=== PATIENT | female | born 1935 | race Two or more races ===

== ENCOUNTER 2023-09-20 22:06 | Inpatient (IN) | payer MEDICARE, OTHER ==
[~2023-09-20] VITALS: Ht 154.9 cm; Wt 39.0 kg
[2023-09-20] MEDS ORDERED: CYAN-51 PO (22:25)
[2023-09-20] MEDS ORDERED: MULT-1045 PO (22:25)
[2023-09-20] MEDS ORDERED: MELA3TAB47 PO (22:25)
[2023-09-20] MEDS ORDERED: OLAN5TAB70 PO (22:25)
[2023-09-20] MEDS ORDERED: POLY119P17 PO (22:25)
[2023-09-20] MEDS ORDERED: ACET-3117 PO (22:25)
[2023-09-20] MEDS ORDERED: OLAN10TA73 PO (22:25)
[2023-09-20] MEDS ORDERED: CALC-494 PO (22:25)
[2023-09-20] MEDS ORDERED: HALOPERIDOL LACTATE 5 MG/1 ML VIAL ONE (23:05)
[2023-09-20] MEDS: HALOPERIDOL LACTATE 5 MG/1 ML VIAL IM ONE (23:09)
[2023-09-20 23:12] LABS: BASOPHILS % (AUTO) 0.5 % (0.0-2.0); EOSINOPHILS # (AUTO) 0.1 K/uL (0.0-0.7); EOSINOPHILS % (AUTO) 1.7 % (0.0-7.0); HEMATOCRIT 37.8 % (31.2-41.9); HEMOGLOBIN 11.9 g/dL (10.9-14.3); LYMPHOCYTES # (AUTO) 3.2 K/uL (0.8-4.8); LYMPHOCYTES % (AUTO) 40.9 % (20.5-51.5); MEAN CORPUSCULAR HGB CONC 32 g/dL (32.3-35.6); MEAN CORPUSCULAR VOLUME 85.7 fL (75.5-95.3); MONOCYTES # (AUTO) 0.8 K/uL (0.1-1.30); MONOCYTES % (AUTO) 10.3 % (0.0-11.0); NEUTROPHILS # (AUTO) 3.7 K/uL (1.8-8.9); NEUTROPHILS % (AUTO) 46.6 % (38.5-71.5); PLATELET COUNT (AUTO) 295 K/uL (179-408); RED CELL DISTRIBUTION WIDTH 14.7 % (12.3-17.7); WHITE BLOOD COUNT (AUTO) 7.9 K/uL (3.8-11.8)
[2023-09-20 23:20] LABS: CALCIUM 9.6 mg/dL (8.5-10.1); CARBON DIOXIDE 30 mmol/L (21-32); CHLORIDE 100 mmol/L (98-107); CREATININE 0.9 mg/dL (0.6-1.3); GLUCOSE 118 mg/dL (74-106); POTASSIUM 4.4 mmol/L (3.5-5.1); SODIUM SERUM 139 mmol/L (136-145); UREA NITROGEN, BLOOD 36 mg/dL (7-18)
[2023-09-20 23:23] LABS: DIFFERENTIAL COMMENT 1
[2023-09-20 23:26] LABS: ACETAMINOPHEN < 10.0 ug/mL (10-30); ALANINE AMINOTRANSFERASE 33 U/L (14-59); ALBUMIN 3.6 g/dL (3.4-5.0); ALKALINE PHOSPHATASE 151 U/L (50-136); ASPARTATE AMINOTRANSFERASE 25 U/L (15-37); BILIRUBIN,DIRECT 0.1 mg/dL (0.0-0.2); BILIRUBIN,TOTAL 0.3 mg/dL (0.2-1.0); TOTAL PROTEIN, SERUM 8.3 g/dL (6.4-8.2)
[2023-09-20 23:34] LABS: THYROID STIMULATING HORMONE 3.778 mIU/mL (0.358-3.740)
[2023-09-20 23:42] LABS: ETHANOL < 3 MG/DL (0-10)
[2023-09-21 00:04] LABS: *BILIRUBIN,URIN NEGATIVE (NEGATIVE); *BLOOD, URINE 2+ (NEGATIVE); *CLARITY,URINE CLEAR (CLEAR); *COLOR,URINE YELLOW (YELLOW); *KETONES,URINE NEGATIVE (NEGATIVE); *PROTEIN,URINE TRACE (NEGATIVE); *UROBILINOGEN,URINE 0.2 E.U./dl (NORMAL); LEUKOCYTE ESTERASE ,URINE TRACE (NEGATIVE); NITRITE, URINE NEGATIVE (NEGATIVE); PH,URINE 7.5 (5.0-8.0); UGLUCOSE NEGATIVE (NEGATIVE)
[2023-09-21 00:06] LABS: *AMPHETAMINE, URINE NEGATIVE (NEGATIVE); *BARBITURATE, URINE NEGATIVE (NEGATIVE); *BENZODIAZEPINE, URINE NEGATIVE (NEGATIVE); *CANNABINOID, URINE NEGATIVE (NEGATIVE); *COCCAINE, URINE NEGATIVE (NEGATIVE); *OPIATE, URINE NEGATIVE (NEGATIVE); *PHENCYCLIDINE SCREEN,URINE NEGATIVE (NEGATIVE)
[2023-09-21 00:10] LABS: FENTANYL, URINE NEGATIVE (NEGATIVE)
[2023-09-21 00:16] LABS: BACTERIA,URINE MODERATE /HPF (NONE SEEN); SQUAMOUS EPITHELIAL CELL,UR FEW /HPF (NONE SEEN)
[2023-09-21] MEDS ORDERED: hydrALAZINE HCL 20 MG/1 ML VIAL ONE (00:17)
[2023-09-21] MEDS: hydrALAZINE HCL 20 MG/1 ML VIAL IV ONE (00:23)
[2023-09-21] MEDS ORDERED: TEMAZEPAM 7.5 MG CAPSULE PO PRN (02:15)
[2023-09-21] MEDS ORDERED: MAGNESIUM HYDROXIDE 30 ML LIQUID UDC PO PRN (02:15)
[2023-09-21] MEDS ORDERED: ACETAMINOPHEN 325 MG TABLET PO PRN ×2 (02:15→12:30)
[2023-09-21] MEDS ORDERED: CLONAZEPAM 0.5 MG TABLET PO PRN (02:15)
[2023-09-21 03:51] VITALS: BP 106/43; TEMP 98; O2SAT 96
[2023-09-21 08:10] VITALS: BP 117/54; TEMP 98.5; O2SAT 98
[2023-09-21] MEDS ORDERED: ENSURE ENLIVE (VAN) 240 ML LIQUID PO SCH (12:30)
[2023-09-21] MEDS ORDERED: CALCIUM CARB/VITAMIN D 500MG-200UNITS TABLET PO PRN (12:30)
[2023-09-21] MEDS: CEphaleXIN 500 MG CAPSULE PO SCH (12:30)
[2023-09-21] MEDS: MULTIVITAMINS,THERAPEUTIC TABLET PO SCH (12:30)
[2023-09-21] MEDS: CYANOCOBALAMIN 1,000 MCG TABLET PO SCH (12:30)
[2023-09-21] MEDS: ENSURE ENLIVE (VAN) 240 ML LIQUID PO SCH (13:58)
[2023-09-21] MEDS ORDERED: CALCIUM CARBONATE 500 MG TAB.CHEW PO PRN (15:00)
[2023-09-21 15:17] VITALS: BP 153/74; TEMP 98.2; O2SAT 97
[2023-09-21 20:11] VITALS: BP 136/70; TEMP 98.1; O2SAT 96
[2023-09-21] MEDS ORDERED: OLANZAPINE 5 MG TABLET PO SCH (21:00)
[2023-09-22 07:44] VITALS: BP 152/64; TEMP 99.2; O2SAT 98
[2023-09-22] MEDS: MIRALAX 17 GM POWD.PACK PO SCH (09:00)
[2023-09-22] MEDS ORDERED: POLYETHYLENE GLYCOL 3350 238 GM POWDER PO SCH (09:00)
[2023-09-22 20:00] VITALS: BP 136/60; TEMP 97.5; O2SAT 96
[2023-09-23 07:44] VITALS: BP 119/85; TEMP 98.1; O2SAT 97
[2023-09-23] MEDS: OLANZAPINE 5 MG TABLET PO SCH (09:00)
[2023-09-23 09:42] LABS: CALCIUM 9.4 mg/dL (8.5-10.1); CREATININE 0.9 mg/dL (0.6-1.3); POTASSIUM 3.7 mmol/L (3.5-5.1)
[2023-09-23 20:06] VITALS: BP 126/78; TEMP 98.1; O2SAT 96
[2023-09-24 08:23] VITALS: BP 133/92; TEMP 98.2; O2SAT 97
[2023-09-24 16:11] VITALS: BP 117/59; TEMP 98; O2SAT 97
[2023-09-24 19:42] VITALS: BP 126/66; TEMP 97.8; O2SAT 96
[2023-09-25 08:00] VITALS: BP 115/55; TEMP 98.4; O2SAT 98
[2023-09-25 15:26] VITALS: BP 118/56; TEMP 98; O2SAT 98
[2023-09-25 20:00] VITALS: BP 111/55; TEMP 97.6; O2SAT 96
[2023-09-26 07:30] VITALS: BP 117/53; TEMP 98; O2SAT 98
[2023-09-26 15:35] VITALS: BP 118/55; TEMP 97.8; O2SAT 96
[2023-09-26 20:00] VITALS: BP 129/56; TEMP 98.6; O2SAT 97
[2023-09-27 08:09] VITALS: BP 125/61; TEMP 98; O2SAT 100
[2023-09-27 15:43] VITALS: BP 126/62; TEMP 98; O2SAT 87
[2023-09-27] MEDS: HALOPERIDOL LACTATE 5 MG/1 ML VIAL IM PRN (18:13)
[2023-09-27 20:00] VITALS: BP 148/53; TEMP 97.7; O2SAT 98
[2023-09-28 07:55] VITALS: BP 108/45; TEMP 96; O2SAT 98
[2023-09-28 14:51] VITALS: BP 131/55; TEMP 96.2; O2SAT 92
[2023-09-28 20:02] VITALS: BP 113/68; TEMP 98; O2SAT 96
[2023-09-29 07:55] VITALS: BP 108/49; TEMP 98.9; O2SAT 97
[2023-09-29 16:19] VITALS: BP 115/53; TEMP 98.7; O2SAT 96
[2023-09-29] MEDS: OLANZAPINE ZYDIS 5 MG TAB.RAPDIS PO SCH (18:20)
[2023-09-29 20:47] VITALS: BP 115/80; TEMP 98; O2SAT 98
[2023-09-30 07:58] VITALS: BP 98/44; TEMP 98.3; O2SAT 97
[2023-09-30] MEDS: OLANZAPINE ZYDIS 5 MG TAB.RAPDIS PO SCH (08:29)
[2023-09-30 16:16] VITALS: BP 109/61; TEMP 98.1; O2SAT 97
[2023-09-30 20:02] VITALS: BP 124/61; TEMP 99.6; O2SAT 96
[2023-10-01 08:03] VITALS: BP 110/51; TEMP 98.2; O2SAT 97
[2023-10-01 16:23] VITALS: BP 146/68; TEMP 98.1; O2SAT 97
[2023-10-01] MEDS ORDERED: HALOPERIDOL 1 MG TABLET PO SCH (17:00)
[2023-10-01] MEDS ORDERED: BENZTROPINE MESYLATE 0.5 MG TABLET PO SCH (17:00)
[2023-10-01 19:48] VITALS: BP 126/56; TEMP 97.9; O2SAT 96
[2023-10-01] MEDS: BENZTROPINE MESYLATE 0.5 MG TABLET PO SCH (20:27)
[2023-10-01] MEDS: HALOPERIDOL 1 MG TABLET PO SCH (20:28)
[2023-10-01] MEDS: MAG HYDROX/AL HYDROX/SIMETH 30 ML LIQUID UDC PO PRN (20:33)
[2023-10-02 08:07] VITALS: BP 115/62; TEMP 98; O2SAT 96
[2023-10-02 15:58] VITALS: BP 110/61; TEMP 98; O2SAT 98
[2023-10-02 19:44] VITALS: BP 112/60; TEMP 98.1; O2SAT 96
[2023-10-03 07:54] VITALS: BP 136/69; TEMP 99; O2SAT 98
[2023-10-03 15:15] VITALS: BP 99/66; TEMP 99; O2SAT 98
[2023-10-03 19:48] VITALS: BP 111/64; TEMP 98.6; O2SAT 96
[2023-10-04 08:55] VITALS: BP 112/50; TEMP 98.8; O2SAT 96
[2023-10-04] MEDS: HALOPERIDOL LACTATE 5 MG/1 ML VIAL IM PRN (10:05)
[2023-10-04] MEDS: HALOPERIDOL DECANOATE 50 MG/1 ML AMPUL IM ONE (10:05)
[2023-10-04 15:15] VITALS: BP 131/59; TEMP 98; O2SAT 98
[2023-10-04 20:02] VITALS: BP 126/56; TEMP 97.9; O2SAT 96
[2023-10-05 08:03] VITALS: BP 103/60; TEMP 99; O2SAT 98
[2023-10-05 15:37] VITALS: BP 165/92; TEMP 98; O2SAT 98
[2023-10-05 20:06] VITALS: BP 109/61; TEMP 98.9; O2SAT 98
[2023-10-06 08:01] VITALS: BP 122/66; TEMP 98.7; O2SAT 98
[2023-10-06 16:33] VITALS: BP 173/91; TEMP 98.5; O2SAT 98
[2023-10-06 20:38] VITALS: BP 137/72; TEMP 98; O2SAT 100
[2023-10-07 08:26] VITALS: BP 136/68; TEMP 98.9; O2SAT 97
[2023-10-07 16:22] VITALS: BP 125/53; TEMP 98.6; O2SAT 97
[2023-10-07 20:13] VITALS: BP 126/51; TEMP 98.5; O2SAT 96
[2023-10-08 08:07] VITALS: BP 101/52; TEMP 98.1; O2SAT 97
[2023-10-08 16:35] VITALS: BP 121/76; TEMP 98; O2SAT 97
[2023-10-08 21:25] VITALS: BP 141/68; TEMP 98.6; O2SAT 97
[2023-10-09 08:50] VITALS: BP 117/55; TEMP 98.8; O2SAT 98
[2023-10-09 15:26] VITALS: BP_SYST 117; BP_SYST 145; BP_DIAS 68; BP_DIAS 74; TEMP 98; TEMP 98.2; O2SAT 98
[2023-10-09 19:56] VITALS: BP 110/60; TEMP 98.1; O2SAT 95
[2023-10-10 07:59] VITALS: BP 149/74; TEMP 98; O2SAT 98
== END 2023-10-10 11:30 | DRG 885 ==
LOC: ER 22:11 → GPS 09-21 01:11
PROVIDERS: ADMIT Psychiatry & Neurology Psychiatry; ATTEND Nurse Practitioner Acute Care
DX: F29 Unspecified psychosis not due to a substance or known physiological condition (principal); F50.00 Anorexia nervosa, unspecified; E44.0 Moderate protein-calorie malnutrition; Z68.1 Body mass index [BMI] 19.9 or less, adult; N39.0 Urinary tract infection, site not specified; F03.93 Unspecified dementia, unspecified severity, with mood disturbance; R64 Cachexia; F03.918 Unspecified dementia, unspecified severity, with other behavioral disturbance; E86.0 Dehydration; B96.89 Other specified bacterial agents as the cause of diseases classified elsewhere; Z81.1 Family history of alcohol abuse and dependence; F20.0 Paranoid schizophrenia; E53.8 Deficiency of other specified B group vitamins; R62.7 Adult failure to thrive; Z91.199 Patient's noncompliance with other medical treatment and regimen due to unspecified reason; Z91.148 Patient's other noncompliance with medication regimen for other reason; Z79.899 Other long term (current) drug therapy
CPT/HCPCS: 36415; 71045; 84443; 85025; 93005; A4606; A4663; G0480; J0360; J1630; J1631